=== PATIENT | female | born 1965 | race American Indian/Alaskan Native ===

== ENCOUNTER 2018-11-20 09:39 | Outpatient (CLI) | payer OTHER ==
--- NOTE | 2018-11-20 21:50 | Vascular Lab Report ---
PROCEDURE: VL VENOUS DUPLEX LE BILAT HISTORY: PAIN IN BOTH LEGS FINDINGS: Real-time ultrasound of the right leg and left leg was performed using grayscale and color Doppler images. These images demonstrate no evidence of deep venous thrombus in the right left common femoral vein, s uperficial femoral vein, popliteal vein or posterior tibial vein. There is a right popliteal cyst 3.0 x 1.0 cm. There is a left popliteal cyst 8.2 x 2.7 cm. IMPRESSION: No DVT in either leg Bilateral popliteal cysts This document is electronically signed by Shaheed Harkins MD., November 20 2018 09:48:20 PM ET
== END 2018-11-20 09:40 | disposition home or self-care (01) ==
LOC: VAS 09:39
PROVIDERS: ATTEND General Practice
DX: M71.22 Synovial cyst of popliteal space [Baker], left knee (principal); M71.21 Synovial cyst of popliteal space [Baker], right knee; I10 Essential (primary) hypertension; E66.9 Obesity, unspecified
CPT/HCPCS: 93970